=== PATIENT | male | born 1980 | race Caucasian/White ===

== ENCOUNTER 2020-05-14 09:34 | Emergency (ER) | payer MEDICAID, SELFPAY ==
[2020-05-14 09:39] VITALS: BP 146/90; PULSE 92; RESP 16; TEMP 36.5; O2SAT 96
--- NOTE | 2020-05-14 10:09 | W.ED.GENAD ---
Discharge Plan Disposition Patient Disposition: HOME Condition: Stable Discharge Details Clinical Impression: Dysfunction of eustachian tube Primary Care Provider: None,None ED Provider: Jai Santana Home Meds and New Rx's Prescriptions: No Action No Known Home Meds RF: 0 Discharge Instructions Instructions: Earache (ED) Additional Instructions: Examination does not reveal any clear signs of infection. I recommend avoiding manual manipulation of your ear. Avoid getting water directly in your ear. You may use yabc-lyc-elmbwak medications such as antihistamine, decongestant, anti-inflammatory for symptomatic control. Please watch for new or worsening symptoms and return to the ER for any concerns. I recommend reaching out to your primary care provider on Saturday to discuss outpatient reevaluation if symptoms are persisting. Medical Decision Making 39-year-old gentleman with mild left ear pain, pressure, popping sensation over the past couple of days. Has not taken any kenh-ctr-ghcdnrt medication. Clinically he appears well, nontoxic, he is neurologically intact. I see no clear signs of bacterial infection. Left TM is slightly dull but there is no bulging, air-fluid level, etc. Likely viral syndrome with mild eustachian tube dysfunction. We discussed treating symptoms with patx-kns-jxsfizs antihistamine, decongestant, anti-inflammatory. Patient is comfortable this plan and has no additional questions or concerns. He was encouraged to return to the ER for new or worsening symptoms otherwise contact his primary care provider on Saturday if he is not getting moderate relief with conservative care. Medical Records Medical records reviewed: Yes I reviewed the patient's medical records. HPI General Mode of arrival: ambulatory. Date/Time Provider Initiated Documentation: 05/14/20 09:44. Limitations to Documentation: no limitations. Information obtained by: patient. HPI Narrative: This is a 39-year-old gentleman, denies significant past medical history, reporting 2-day history of left ear pressure, minimal discomfort, that now radiates down his neck into his throat. He reports that he feels slightly off balance but not dizzy like the room is spinning. Symptoms are made worse when he moves his head quickly. He reports that when he swallows he feels a popping sensation in his left ear. He denies recent illness or trauma. Denies headache, fever, sore throat, nasal congestion, ear drainage, cough, shortness of breath, cough. Denies any GI symptoms. Related Data Home Medications Medication Instructions Recorded Confirmed Unknown [No Known Home Meds] 03/06/14 05/14/20 Allergies Allergy/AdvReac Type Severity Reaction Status Date / Time mold AdvReac Uncoded 05/14/20 09:43 General Stated Complaint: EarProblem KORY: 4 Review of Systems Constitutional Constitutional: Denies fever(s) and Denies headache(s) Eyes Eyes: Denies eye discharge ENT Ears, Nose, Mouth, and Throat: Denies ear discharge, Reports otalgia, Denies headache(s) and Denies sore throat Cardiovascular Cardiovascular: Denies chest pain and Denies dyspnea Respiratory Respiratory: Denies cough and Denies dyspnea Gastrointestinal Gastrointestinal: Denies abdominal pain, Denies nausea and Denies vomiting Integumentary/Breasts Skin/Breast: Denies rash Neurologic Neurologic: Denies headache(s) [facility] Social History Smoking/Tobacco Use Status: Former Tobacco Use Smoking risk assessment performed?: Yes Drug use: Never Do you feel safe at home: Yes Do you feel safe in your relationship?: Yes Exam Const General: cooperative, healthy appearing, comfortable and no acute distress Orientation: alert, awake and oriented x3 HENMT Head: normal to inspection, normocephalic and atraumatic Ears: hearing grossly normal bilaterally, external ears normal, TM normal on the right, EAC's normal and TM abnormal dull on the left and erythematous on the left (Minimally); not bulging, not with effusion, with no fluid behind the TM, with no loss of landmarks and not retracted General nose exam: external nose normal Face and sinus: normal facial exam Mouth: moist mucous membranes Throat: posterior oropharynx normal Eyes General: appearance normal, both eyes and all related structures Periorbital: periorbital findings normal Eyelids: eyelids normal Conjunctivae: conjunctivae normal Neck Neck: normal visual inspection, full ROM, no lymphadenopathy, no meningeal signs, trachea midline, supple and nontender Resp Effort & Inspection: normal respiratory effort and able to speak in complete sentences Auscultation: clear to auscultation bilaterally Cardio Rate: regular rate Rhythm: regular rhythm Skin General skin exam: no rashes or lesions noted Neuro General: patient alert, patient awake, patient oriented x3, moves all extremities and no focal motor deficits Cognition: normal cognition Speech: speech normal Gait: normal gait Motor: muscle tone normal throughout Sensory Exam: no sensory deficits noted Psych Appearance: grossly normal Mental Status: mental status grossly normal Course Vital Signs Vital signs: Vital Signs Temperature 36.5 C 05/14/20 09:39 Pulse 92 H 05/14/20 09:39 Respiratory Rate 16 05/14/20 09:39 Blood Pressure 146/90 H 05/14/20 09:39 Pulse Oximetry 96 05/14/20 09:39 Temperature 36.5 C 05/14/20 09:39 Temperature Source Temporal Artery Scan 05/14/20 09:39 Pulse 92 H 05/14/20 09:39 Respiratory Rate 16 05/14/20 09:39 Respiratory Effort Non-Labored 05/14/20 09:44 Blood Pressure 146/90 H 05/14/20 09:39 Blood Pressure Position Sitting 05/14/20 09:39 Pulse Oximetry 96 05/14/20 09:39 Oxygen Delivery Method Room Air 05/14/20 09:39 Oxygen Flow Rate 0 05/14/20 09:39 Pain Level 1 05/14/20 09:39
== END 2020-05-14 10:15 | disposition home or self-care (01) ==
LOC: ER 10:21
PROVIDERS: Emergency Provider Physician Assistant
DX: H69.82 Other specified disorders of Eustachian tube, left ear (principal)
CPT/HCPCS: 99282

== ENCOUNTER 2023-12-03 15:31 | Emergency (ER) | payer MEDICAID, SELFPAY ==
[2023-12-03 15:34] VITALS: BP 134/92; PULSE 106; RESP 16; TEMP 36.4; O2SAT 99
--- NOTE | 2023-12-03 16:57 | ED.GENADUL_ITS ---
Discharge Plan Disposition Patient Disposition: Home Condition: Stable Discharge Details Clinical Impression: Acute viral syndrome Primary Care Provider: None,None ED Provider: Leatha Lynn Home Meds and New Rx's Prescriptions: New prednisone 20 mg tablet 60 mg PO DAILY 5 Days Qty: 15 0RF Discharge Instructions Instructions: Viral Tests Additional Instructions: Continue yiri-zus-dabzazu Tylenol and ibuprofen for pain relief. He may take up to 1000 mg of Tylenol maximum of every 4 hours and up to 800 mg of ibuprofen maximum of every 8 hours. Please follow-up with your primary care doctor also and in the meantime if you do get worse or develop any new or concerning symptoms return to the emergency department for reevaluation. HPI General Date/Time Provider Initiated Documentation: 12/03/23 16:34 . HPI Narrative: The patient is a 43-year-old male without any significant past medical history and currently not on any regularly prescribed medication who comes the emergency department for sinus complaints. Reports that he jumped into the [place] yesterday. Reports that he felt chilled which is unusual because he thought the water was warm. Reports that he did not check his temperature then. Denies any known sick contacts. Reports he has been feeling very fatigued. Reports that he feels discomfort when he touches his sinus, discomfort to the lymph nodes on his neck and has noticed sore throats and oral sores to a point where he did not want to eat or drink today because of the pain. Reports that yesterday he took 500 of ibuprofen and it did not really do much and today he took 1000 mg of ibuprofen and he was able to sleep. Reports that he checked himself twice at home for COVID and both test came back negative. Denies any known sick contacts. Denies any cough, chest pain or shortness of breath. Denies abdominal pain, nausea or vomiting. Related Data Home Medications ?Medication ?Instructions ?Recorded ?Confirmed prednisone 20 mg tablet 60 mg (3 x 20 mg) PO DAILY 5 days 12/03/23 #15 tabs Previous Rx's ?Medication ?Instructions ?Recorded prednisone 20 mg tablet 60 mg (3 x 20 mg) PO DAILY 5 days 12/03/23 #15 tabs Allergies Allergy/AdvReac Type Severity Reaction Status Date / Time mold AdvReac Uncoded 05/14/20 09:43 General Stated Complaint: GenMedical KORY: 4 Review of Systems Narrative: Review of systems are negative except as mentioned. Exam Narrative Exam Narrative: The patient is in no acute distress. Oral mucosal membranes are moist. No tonsillar erythema, swelling or exudates noted. He has no fullness of the soft or hard palate or the floor of the mouth. He has no trismus. No dental tenderness is noted to palpation on the upper gumline. Did not appreciate any oral lesions at the time of my evaluation. Patient has anterior cervical lymphadenopathy which are freely mobile without overlying erythema or increased warmth to touch. Patient has mild discomfort to palpation to bilateral frontal and maxillary sinuses. Lungs are clear to auscultation bilaterally. Heart is regular in rate and rhythm. Abdomen is soft with normal bowel sounds and nontender to palpation throughout. Course Vital Signs Vital signs: Vital Signs Temperature 36.4 C L 12/03/23 15:34 Pulse 106 H 12/03/23 15:34 Respiratory Rate 16 12/03/23 15:34 Blood Pressure 134/92 H 12/03/23 15:34 Pulse Oximetry 99 12/03/23 15:34 Temperature 36.4 C L 12/03/23 15:34 Temperature Source Tympanic 12/03/23 15:34 Pulse 106 H 12/03/23 15:34 Respiratory Rate 16 12/03/23 15:34 Blood Pressure 134/92 H 12/03/23 15:34 Blood Pressure Position Sitting 12/03/23 15:34 Pulse Oximetry 99 12/03/23 15:34 Oxygen Delivery Method Room Air 12/03/23 15:34 Oxygen Flow Rate 0 12/03/23 15:34 Pain Level 5 12/03/23 15:34 Medical Decision Making The patient arrives hemodynamically stable and overall appears well. He has some concern regarding COVID in spite of having 2 negative test at home. Reports that he consulted with his sister who is a medical expert and they were concerned regarding this so I am checking him again now. I suspect however that the patient has a viral process causing his symptoms. Physical exam is otherwise benign. I will hold off on blood work and imaging study at this point. The patient's viral screen came back negative. I have updated the patient on workup results and of plan for discharge at this point. I told him of my recommendation for steroids for the next 2 days which will be sent to his preferred pharmacy. He is encouraged to take cikq-swu-onbolwe pain medication as needed but urged to follow-up with his primary care doctor. I told him at any time though if he does get worse or develop any new or concerning symptoms return to the emergency department. Quality:SDOH Health Related Social Needs: No Data to Display PFSH All Active Problems (Updated 12/03/23 @ 18:23 by Leatha Lynn DO) Acute viral syndrome (Acute) Social History Smoking/Tobacco Use Status: Former Tobacco Use Smoking risk assessment performed?: Yes Drug use: Never Do you feel safe at home: Yes Do you feel safe in your relationship?: Yes
[2023-12-03 18:00] LABS: COVID-19 PCR Negative (Negative); Influenza A PCR Negative (Negative); Influenza B PCR Negative (Negative); RSV PCR Negative (Negative)
[2023-12-03 18:03] LABS: Source NASOPHARYNX
[2023-12-03 18:56] VITALS: BP 134/92; PULSE 106; RESP 16; TEMP 36.4; O2SAT 99
== END 2023-12-03 18:59 | disposition home or self-care (01) ==
PROVIDERS: Emergency Provider Emergency Medicine
DX: R07.0 Pain in throat (principal); R53.1 Weakness; B34.9 Viral infection, unspecified
CPT/HCPCS: 87637; 99283